=== PATIENT | female | born 1975 | race Caucasian/White ===

== ENCOUNTER 2016-11-19 00:12 | Observation (INO) | payer OTHER ==
[~2016-11-19] VITALS: Ht 167.6 cm; Wt 74.8 kg
--- NOTE | ~2016-11-19 | HP ---
ADMIT: 11/19/2016 RM/LOC: [facility] MR#: [id number] 26[address] [facility] [address] [place] [phone] JAS STEINER [address] [place] [address] History and Physical SEX: F AGE: 41 : 1975 DATE OF SERVICE: 11/19/2016 CHIEF COMPLAINT: Obstructing left proximal ureteral calculus and a solitary left renal unit. No urine output. HISTORY PRESENT ILLNESS: The patient is a pleasant 41-year-old, white female, who is status post right nephrectomy after renal trauma approximately 12 to 13 years ago. The patient presents today with acute-onset left flank pain approximately 10:00 p.m. on 11/18/2016, she has not voided since. The pain has been intractable with significant morphine administration in the emergency room. Emergency room evaluation demonstrates mildly elevated white blood cell count of 10.5, serum creatinine of 1.4. CT scan demonstrated an obstructing 7 mm stone right at the ureteropelvic junction with associated left-sided hydronephrosis. There is hypertrophy of the left kidney. The right kidney is absent. Given the constellation of symptoms, solitary kidney, obstructing calculus, renal insufficiency, I have recommended proceeding to the operating room directly for cystoscopy, retrograde pyelogram, left ureteral stent placement, possible ureteroscopy. Risks and benefits have been discussed, complications of anesthesia, bleeding, infection, injury to bladder, ureter, kidney. Symptoms of stent irritation include urgency, frequency, flank pain, and hematuria have been discussed. We have discussed the likelihood of secondary procedures, with followup ureteroscopy and laser lithotripsy. If retrograde access to the collecting system is not possible, then percutaneous nephrostomy tube would be required. PAST MEDICAL HISTORY: 1. Significant for renal trauma, status post right nephrectomy. 2. Previous hernia repair. 3. Previous . MEDICATIONS: Multivitamin. ALLERGIES: NO KNOWN DRUG ALLERGIES. PAST SURGICAL HISTORY: As outlined above. FAMILY HISTORY: Negative for anesthesia reaction. SOCIAL HISTORY: The patient smokes socially, but does not smoke habitually. REVIEW OF SYSTEMS: No cardiac or pulmonary disorders. PHYSICAL EXAMINATION: GENERAL: The patient is distressed. VITAL SIGNS: Stable. She is afebrile. HEART: Regular. CHEST: Clear. ABDOMEN: Tender throughout, more so in the left upper quadrant. BACK: Left-sided testicle tenderness. EXTREMITIES: No cyanosis, clubbing, or edema. ADMIT: 11/19/2016 RM/LOC: [facility] MR#: [id number] [address] [place] [phone] JAS STEINER Manda [address] [place] [address] History and Physical SEX: F AGE: 41 : 1975 LABORATORY DATA AND IMAGING: Sodium 140, potassium 4.0, BUN and creatinine of 15 and 1.4. White blood cell count of 10.5, hematocrit 33.0, platelet count 209. Urinalysis demonstrated 4+ blood, 3+ leukocyte esterase, 10 to 20 whites, 10 to 20 red cells, [address] scan demonstrates a solitary left kidney with obstructing 7 mm stone at the left ureteropelvic junction. ASSESSMENT: Obstructing left ureteral calculus and a solitary left renal unit. PLAN: We will proceed with cystoscopy, retrograde pyelogram, left ureteral stent placement, possible ureteroscopy. Risks and benefits as outlined above. A 250 mg of Levaquin be administered preoperatively. Douglas Kwok MD/ [place] JOB #: [id number] CC: Douglas Kwok, Attending Physician Douglas Kwok, Family Physician
[2016-11-20] MEDS ORDERED: NORCO 5-325 TA1 EACH PO (15:42)
[2016-11-20] MEDS ORDERED: LEVAQUIN DPS500 MG PO (15:42)
--- NOTE | 2016-11-22 19:20 | ER ---
ADMIT: 11/19/2016 RM/LOC: ER [facility] MR#: [id number] [address] [phone] JAS STEINER [address] [place] [address] Emergency Room Report SEX: F AGE: 41 : 1975 DATE: 11/19/2016 CHIEF COMPLAINT: Left flank pain. HISTORY OF PRESENT ILLNESS: A 41-year-old female, who presents with four hours' duration of left low back and flank pain. Rates this as a 10/10. Denies any blood in her urine or urinary symptoms prior to this. Describes the pain as sharp and stabbing, radiating to the groin. Admits to nausea, vomiting, loss of appetite, low back pain. No fever or chills. Worse with movement, relieved by nothing. She is unable to get comfortable. PAST MEDICAL HISTORY: Significant for the fact that she is status post nephrectomy secondary to a trauma she sustained when she was bucked off a horse. She is unsure which kidney was involved at this time. COURSE IN THE EMERGENCY ROOM: GENERAL: The patient was seen and examined. She is afebrile. She is in a moderate amount of distress. She is alert. She appears very uncomfortable. LUNGS: Clear. HEART: Regular. ABDOMEN: Soft. She does have some tenderness on the left side radiating down the left lower quadrant of her abdomen. There is no rebound or guarding. BACK: Normal. No CVA tenderness. SKIN: Warm and dry. No CVA tenderness on the right. She does have CVA tenderness on the left. EXTREMITIES: Nontender. No pedal edema. She is alert and oriented, appropriate with exam otherwise. Given her symptoms, did proceed to work her up for a possible nephrolithiasis. Pending at this time includes CMP, urine , UA, as well as CT renal colic. I did start an IV on her, normal saline 1 L bolus, as well as Zofran 4 mg as well as morphine for pain control. These are pending at this time. Return this patient over to Dr. Salgado for further delineation and management of her symptoms. STEPHANIE Corado / Khris Salgado MD / [place] JOB #: [id number] CC: Khris Salgado MD, Attending Physician Sergey Ospina MD, Family Physician
--- NOTE | 2016-11-22 19:20 | ER ---
ADMIT: 11/19/2016 RM/LOC: ER [facility] MR#: [id number] 26[address] [facility] [address] [place] [phone] JAS STEINER [address] [place] [address] Emergency Room Report SEX: F AGE: 41 : 1975 DATE: 11/19/2016 HISTORY OF PRESENT ILLNESS: The patient is a 41-year-old female with a chief complaint of left flank pain which is intermittent, she had it for the last week on and off, pain is moderate to severe. The last night the pain increased in severity. There is no radiation of the pain. The pain is sharp. The patient denies any blood in the urine and denies any similar symptoms in the past, spouse at the room states that the patient had similar symptoms about a month ago which resolved spontaneously. The patient also complains of nausea without vomiting. In the ER, patient had creatinine of 1.4, considering the patient has just one left kidney as the right kidney was removed during exploratory laparotomy because of the trauma before, bedside ultrasound by the ER physician, showed the position of the left kidney with questionable hydronephrosis. The patient received IV fluids and morphine for pain control, and although she received IV fluid, she did not produce much urine for exam, the minimal urine that was produced was about 1 mL, was sent to lab and it was positive for red blood cell and white blood cell. Followup CT scan of the abdomen and pelvis, kidney stone protocol showed left-sided obstructive kidney stone. Urology was consulted and the patient was admitted for further followups and treatments. Khris Salgado MD/ [place] JOB #: [id number] CC: Khris Salgado MD, Attending Physician Sergey Ospina MD, Family Physician
--- NOTE | 2016-12-09 08:28 | OR ---
ADMIT: 11/19/2016 RM/LOC: 620 [facility] MR#: [id number] ACC#: [id number] [address] [facility] [address] [place] [phone] JAS STEINER [address] [place] [address] Operative/Delivery Room Report SEX: F AGE: 41 : 1975 SURGERY DATE: 11/19/2016 SURGEON: Douglas Kwok MD PREOPERATIVE DIAGNOSES: 1. Obstructing left proximal ureteral calculus-symptomatic. 2. Solitary left renal unit. POSTOPERATIVE DIAGNOSES: 1. Obstructing left proximal ureteral calculus-symptomatic. 2. Solitary left renal unit. PROCEDURES: Cystoscopy with left retrograde pyelogram, left ureteral stent placement. ANESTHESIA: General. INDICATIONS: The patient is a pleasant white female with solitary left renal unit, obstructing left proximal ureteral calculus which is symptomatic, taken to the operating room urgently for intervention. Risks and benefits have been discussed, preoperative antibiotics given, informed consent obtained. PROCEDURE IN DETAIL: The patient was taken to OR #5, placed on the table in supine position. After adequate anesthesia, transferred to dorsal lithotomy position, prepped and draped in the usual fashion. A time-out was taken for the patient's name, date of , planned procedure, preoperative antibiotics, and allergies. A 22-Macedonian cystoscope was advanced to the level of bladder. Routine cystoscopy rules out any intraluminal bladder pathology. Left ureteral orifice was visualized, cannulated with 8-Macedonian cone-tipped catheter, full- strength contrast was used to create a retrograde pyelogram which outlines a normally distensible ureter all the way to the ureteropelvic junction where the stone is located. With just some gentle pressure on the irrigation, the stone popped out of the ureteropelvic junction back into the renal pelvis. We were able to fill out sharply the renal pelvis, which was dilated. The infundibula were slightly dilated, although calyceal structures were sharply delineated. I did remove the cone-tipped catheter. We did pass an angle- ADMIT: 11/19/2016 RM/LOC: 620 [facility] MR#: [id number] 26[address] [facility] [address] [place] [phone] JAS STEINER [address] [place] [id number] Operative/Delivery Room Report SEX: F AGE: 41 : 1975 tipped Glidewire into an upper pole calyx under fluoroscopic visualization. A 6-Macedonian 26 cm double-J stent was then followed. With removal of the guidewire, we had a nice curl within the pelvis, nice curl within the urinary bladder, and brisk efflux of urine from the drainage ports within the bladder. The bladder was left filled to capacity, the scope withdrawn. A 16-Macedonian Pantoja catheter was passed per urethra and left to gravity drainage. The patient was taken out of dorsal lithotomy position, extubated uneventfully, and transferred to recovery room in stable condition. Secondary to the fact that she has a solitary left renal unit and no urine output for the last 8 hours, we are going to go ahead and admit her for routine monitoring of urine output, reassess renal function in the morning, make sure that she is doing okay with the stent, so she will be admitted for 24-hour observation. Douglas Kwok MD/ [place] JOB #: [id number] CC: Douglas Kwok, Attending Physician Douglas Kwok, Family Physician
== END 2016-11-19 15:15 | disposition home or self-care (01) ==
LOC: ER 00:12 → SSS 04:16 → 6PED 04:17
PROVIDERS: ADMIT Urology
PROC: BT1FYZZ Fluoroscopy of Left Kidney, Ureter and Bladder using Other Contrast (ICD-10-PCS; principal; 2016-11-19)
PROC: 0T778DZ Dilation of Left Ureter with Intraluminal Device, Via Natural or Artificial Opening Endoscopic (ICD-10-PCS; principal; 2016-11-19)
DX: N20.1 Calculus of ureter (principal); Z98.890 Other specified postprocedural states